=== PATIENT | male | born 1970 | race Hispanic/Latino ===

== ENCOUNTER → 2020-03-12 10:04 | Outpatient (ROUT) | payer OTHER, SELFPAY ==
[2020-03-12 10:28] LABS: COVID19 -Nasal RAPID Negative (Negative)
== END ==
PROVIDERS: Visit Provider Family Medicine
DX: Z20.822 Contact with and (suspected) exposure to COVID-19 (principal)
CPT/HCPCS: 87635

== ENCOUNTER → 2022-11-17 18:33 | Outpatient (CLI) | payer OTHER, SELFPAY ==
--- NOTE | 2022-11-17 18:38 | DI.MRI.S_ITS ---
PROCEDURE: MR KNEE RT WO CON INDICATIONS: Pain in right knee TECHNIQUE: Noncontrast sagittal PD fast spin echo and T2 fast spin echo with fat saturation, sagittal 3-D FLASH with fat saturation; coronal T1 spin echo and PD fast spin echo with fat saturation, and axial PD fast spin echo with fat saturation through the knee. COMPARISON: None. FINDINGS: Image quality: Excellent. Anterior Cruciate Ligament: Intact. Posterior Cruciate Ligament: Intact. Medial Collateral Ligament: Mild thickening of the proximal medial collateral ligament is most likely secondary to a remote prior low-grade sprain. Lateral Collateral Ligament: Intact. Medial Meniscus: Horizontal oblique tearing of the posterior horn and likely the body of the medial meniscus extending to the inner third of the tibial articular surface. Lateral Meniscus: Shallow radial tearing at the junction of the anterior horn and body of the lateral meniscus with a small centrally displaced meniscal flap. Medial and Lateral Tendons: The semimembranosus tendon insertions and meniscocapsular junction appear intact. Visualized portions of the pes anserinus tendons appear normal. No abnormal bursal fluid. The long and short heads of the biceps femoris tendon appear intact. The popliteus tendon appears intact. No signs of posterolateral corner injury. Iliotibial band appears normal. Anterior Structures: The quadriceps and patellar tendons appear intact. No patellar subluxation. No femoral trochlear dysplasia or ventral trochlear prominence. No edema in the infrapatellar fat pad. Bones: Mild focal osseous edema at the posterior aspect of the medial femoral condyle may be secondary to adjacent cartilage loss versus traction from the gastrocnemius tendon insertion versus a small contusion. Medial Femorotibial Cartilage: Mild partial-thickness surface cartilage irregularity. Lateral Femorotibial Cartilage: Full-thickness cartilage loss is seen at the posterior to far posterior portion of the lateral femoral condyle with subchondral osteophyte formation and mild subchondral cystic changes. Patellofemoral Cartilage: Mild partial-thickness cartilage thinning at the lateral femoral trochlea. Cartilage fissuring is seen at the medial femoral trochlea with subchondral cystic changes. Soft Tissues: Small joint effusion is present. Trace medial popliteal cyst. The musculature surrounding the knee is normal in bulk. IMPRESSION: 1. Horizontal oblique tearing of the posterior horn and body of the medial meniscus extending to the inner third of the tibial articular surface. 2. Shallow radial tearing at the junction of the anterior horn and body of the lateral meniscus with a small centrally displaced meniscal flap. 3. Remote prior low-grade sprain of the proximal medial collateral ligament. 4. Full-thickness cartilage loss at the posterior to far posterior portion of the lateral femoral condyle with subchondral osteophyte formation and subchondral cystic changes. 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 5. Small joint effusion. Approved by: Barrington Salazar M.D. on 11/18/2022 at 13:03
== END ==
PROVIDERS: Referring Provider Family Medicine; Visit Provider Family Medicine
DX: S83.241A Other tear of medial meniscus, current injury, right knee, initial encounter (principal); S83.281A Other tear of lateral meniscus, current injury, right knee, initial encounter; S83.411A Sprain of medial collateral ligament of right knee, initial encounter; M25.561 Pain in right knee; M25.461 Effusion, right knee
CPT/HCPCS: 73721

== ENCOUNTER → 2023-03-03 08:44 | Outpatient (CLI) | payer OTHER, SELFPAY ==
--- NOTE | 2023-03-03 08:48 | DI.RAD.S_ITS ---
PROCEDURE: XR ANKLE RT MIN 3V INDICATIONS: ROLLED ANKLE TECHNIQUE: 3 views of the ankle were acquired. COMPARISON: None. FINDINGS: Bones: Avulsion fracture of the lateral malleolus. Small lucent lesion along the medial talus. Soft tissues: Large tibiotalar joint effusion. Achilles tendon appears normal. IMPRESSION: Avulsion fracture of the lateral malleolus. Small lucent lesion along the medial talus, which could indicate osteochondral defect or be a sequela of trauma. Findings discussed with Dr. Ann at time of exam. Dictated by: Bill Venegas M.D. on 03/03/2023 at 10:43 Approved by: Bill Venegas M.D. on 03/03/2023 at 10:45
== END ==
PROVIDERS: PCP Family Medicine; Referring Provider Family Medicine; Visit Provider Family Medicine
DX: S82.61XA Displaced fracture of lateral malleolus of right fibula, initial encounter for closed fracture (principal); S93.401S Sprain of unspecified ligament of right ankle, sequela; M89.9 Disorder of bone, unspecified; X58.XXXA Exposure to other specified factors, initial encounter
CPT/HCPCS: 73610

== ENCOUNTER → 2023-03-10 16:36 | Outpatient (CLI) | payer OTHER, SELFPAY ==
--- NOTE | 2023-03-10 | DI.MRI.S_ITS ---
PROCEDURE: MR ANKLE RT WO CON INDICATIONS: CLOSED AVULSION FX OF LATERAL MALLEOLUS TECHNIQUE: Noncontrast sagittal T1 spin echo and T2 fast spin echo with fat saturation, axial proton density fast spin echo and T2 fast spin echo with fat saturation, coronal T1 spin echo and T2 fast spin echo with fat saturation through the ankle/hindfoot. COMPARISON: None. FINDINGS: Image quality: Excellent. Bones and joints: There is marrow edema involving mid to distal talus with osteochondral injury involving medial weight-bearing portion of talar dome measures 1 x 0.8 x 0.7 cm in size. No other area of abnormal marrow signal. No fracture or dislocation. Small tibiotalar joint effusion is seen, no gross loose bodies. Well-defined plantar and dorsal calcaneal enthesophytes are noted. Medial structures: The posterior tibialis, flexor digitorum longus, and flexor hallucis longus tendons are intact. Moderate amount of fluid distending flexor tendon sheath is seen. The posterior tibial neurovascular bundle appears normal within the tarsal tunnel, without extrinsic mass effect. Thickened deltoid ligament with intrasubstance T2 hyperintense signal is seen. The spring ligament complex is also thickened. Lateral structures: The anterior talofibular is not visualized suggestive of ruptured ATFL. The calcaneofibular, and posterior talofibular ligaments appear markedly thickened. More superiorly, the anterior and posterior tibiofibular ligaments also appears thickened with intrasubstance T2 hyperintense signal. The tibiofibular syndesmosis is normal in width at 2 mm or less. The peroneus tendons are thickened with moderate amount of fluid distending tendon sheath at the level of lateral malleolus extending to the level of calcaneocuboid joint. Significant lateral ankle soft tissue swelling is seen. Edema within sinus tarsi is seen. Visualized sinus tarsi components are grossly intact. Anterior structures: The tibialis anterior, extensor hallucis longus, and extensor digitorum longus tendons appear intact. The dorsal talonavicular ligament appears intact. Posterior and plantar structures: Achilles tendon is intact. Thickened medial band of plantar fascia at its calcaneal insertion is seen. No abductor digiti quinti muscle atrophy to suggest Ayon neuropathy. IMPRESSION: 1. 1 x 0.8 x 0.7 cm osteochondral injury involving medial weight-bearing portion of talar dome with surrounding edema. No fracture or dislocation. Small joint effusion, no gross loose bodies. Significant lateral ankle ligament soft tissue swelling and edema. 2. Suggestion of ruptured ATFL. Sprain/low-grade partial-thickness tear involving posterior talofibular ligament and calcaneofibular ligament as well as anterior and posterior tibial fibular ligaments. 3. Low to moderate grade deltoid ligament sprain. Low-grade spring ligament sprain. 4. Low to moderate grade tenosynovitis involving flexor tendons and peroneus tendons as above. No full-thickness ankle tendon rupture. 5. Well-defined plantar and dorsal calcaneal enthesophytes with thickened medial band of plantar fascia suggestive of low to moderate grade plantar fasciitis. Dictated by: Ravi Renner M.D. on 03/11/2023 at 9:23 Approved by: Ravi Renner M.D. on 03/11/2023 at 9:40
== END ==
LOC: MRI 16:36
PROVIDERS: PCP Family Medicine; Referring Provider Family Medicine; Visit Provider Family Medicine
DX: S82.61XA Displaced fracture of lateral malleolus of right fibula, initial encounter for closed fracture (principal); S93.411A Sprain of calcaneofibular ligament of right ankle, initial encounter; S93.491A Sprain of other ligament of right ankle, initial encounter; S93.421A Sprain of deltoid ligament of right ankle, initial encounter; M65.871 Other synovitis and tenosynovitis, right ankle and foot; M25.471 Effusion, right ankle; M79.89 Other specified soft tissue disorders; M77.31 Calcaneal spur, right foot
CPT/HCPCS: 73721

== ENCOUNTER 2023-03-31 06:34 | Day surgery (SDC) | payer OTHER, SELFPAY ==
[2023-03-26 10:07] VITALS: BMI 27.8
[2023-03-31 07:10] VITALS: BP 138/91; PULSE 67; RESP 16; TEMP 36.6; O2SAT 98; BMI 27.8
[2023-03-31] MEDS: LACTATED RINGERS 1,000 ML 100 ML IV ×2 (07:37→09:57)
--- NOTE | 2023-03-31 07:39 | PM.PREOP ---
Pre-operative Note Interval Note History & Physical reviewed/Exam performed by Physician: Yes Changes to H&P: No
--- NOTE | 2023-03-31 08:26 | SUR.PREOP ---
Block start time [0755] . time out performed with Dr Ram and this RN - Jonh. Monitoring initiated and maintained throughout procedure. Oxygen and medications given per anesthesiologist. Patient remained stable throughout procedure, no adverse reactions noted. Block end time [0815 ].
[2023-03-31] MEDS: CEFAZOLIN 2 GM/100 ML PREMIX 100 ML IV (08:43)
--- NOTE | 2023-03-31 08:50 | SUR.OPER ---
Supine on padded OR bed, head on pillow, arms secured on padded arm boards at <90 degrees abduction, legs uncrossed, safety belt at thigh, tape over blanket over lower LEFT LEG.
[2023-03-31] MEDS: BUPIVACAINE 0.25% (PF) 30 ML, EPINEPHrine 0.15 MG INJ (09:25)
[2023-03-31 10:56] VITALS: BP 139/97; PULSE 88; RESP 24; TEMP 36.3; O2SAT 98
[2023-03-31 11:00] VITALS: BP 138/94; PULSE 83; RESP 14; TEMP 36.3; O2SAT 98
[2023-03-31 11:05] VITALS: BP 133/90; PULSE 86; RESP 12; TEMP 36.3; O2SAT 98
[2023-03-31 11:09] VITALS: BP 134/89; PULSE 86; RESP 15; TEMP 36.2; O2SAT 99
[2023-03-31] MEDS: OXYCODONE IR 5 MG TABLET PO (11:19)
[2023-03-31 11:20] VITALS: BP 138/79; PULSE 70; RESP 16; TEMP 36.6; O2SAT 99
--- NOTE | 2023-03-31 15:18 | P.OP_ITS ---
Operative Date/Time/Diagnoses Date of procedure: 03/31/23 Time of procedure: 08:47 Pre-op diagnosis: Sprain anterior talofibular ligament right ankle s93.491a Osteochondral lesion right talus M89.9 Peroneal tendinosis right M67.88 Post-op diagnosis: same Procedure & Clinicians Procedure: 1. Unlisted procedure for leg or ankle CPT code 05851 open arthrotomy with treatment of talus osteochondral lesion with allograft cartilage compared to CT code 80902 right ankle talus 2. Modified Brostrom reconstruction lateral ankle ligaments CPT 06266 separate incision modifier 59 3. Debridement peroneal tendon peroneus brevis and longus right ankle CPT code 81143 Same procedure as scheduled: Yes Indications: Patient is a 52-year-old male with a right ankle sprain and osteochondral lesion status post a an industrial injury 03/03/2023 when he tripped at work rolled his ankle. MRI demonstrated acute ankle sprain with rupture of ATFL and acute medial talar dome osteochondral lesion measuring 10 x 8 x 7 mm with the medial portion of the weight-bearing dome with surrounding edema as well as pain and synovitis surrounding the peroneal tendons. Patient was indicated for surgery to address his cartilage lesion and address his ATFL rupture with a lateral ligament reconstruction to reduce the risk of continued instability and more cartilage damage. He was also indicated for exploration debridement of his peroneal tendons. The risks and benefits of the procedure have been discussed with the patient and given the opportunity to ask questions. The risks of surgery include but are not limited to infection, malunion, nonunion, persistence of pain, damage to nerves and blood vessels, posttraumatic arthritis, DVT, PE, cardiopulmonary complications and . The patient expressed a thorough understanding of the risks and benefits of surgery and has elected to proceed. Consent was signed . Surgeon: Hamida Graves Click Yes if Unassisted: Yes Anesthesia Type: General, Peripheral nerve block and Local Operative Notes Findings: Increased anterior drawer Medial talar dome osteochondral lesion 10 x 8 x 6 debrided of unstable cartilage to a stable border drilled and repaired using allograft cartilage mixed with platelet rich plasma and sealed with fibrin Tisseel. Lateral ligaments reconstructed with 2 x fiber tacks from Arthrex Peroneal tendons were debrided of tendinosis and low-lying muscle belly there is a small backside tear of the peroneus brevis tendon that was debrided sharply Closure Type: primary Specimen(s): none sent Estimated Blood Loss (mL): 20 Blood products transfused: none Tourniquet time (min): 82 Procedure in detail: Patient was seen in the preoperative area the site of surgery marked informed consent confirmed. A regional block was placed by the anesthesia team for postoperative pain control. Patient was brought back to the operating room positioned supine on operative table. General anesthetic was administered. A well-padded thigh tourniquet was applied. The right lower extremity was prepped and draped in the standard sterile fashion a formal time-out procedure was performed confirming the patient's side and site of surgery administration of appropriate preoperative antibiotic and presence of informed consent. All were in agreement. Attention turned to the right ankle the Esmarch was used for exsanguination and the tourniquet raised on the thigh to 250 mmHg. 10 cc of saline was used in insufflate the tibiotalar joint then using the standard domo and spread technique the medial anterior portal was made and the arthroscopic camera was inserted. The ankle was brought into plantar flexion and the medial talar dome osteochondral lesion was visualized. There was no lateral osteochondral lesion visualized. Due to the size and location of the lesion decision was made for an open arthrotomy for the cartilage allograft therefore the camera was removed the medial portal site was extended into a medial arthrotomy dissection was taken down to the tibiotalar joint. The ankle K-wire distractor was brought in to hold the ankle in plantar flexion allowing exposure of the weight-bearing portion of the talar dome and exposure of the osteochondral lesion. The ring curette and regular curette were used to debride the unstable cartilage back to stable borders giving a size of approximately 1 cm x 6 x 8 mm. This was then drilled. PRP was drawn and spun off the set up. This was then mixed with the Arthrex cartilage allograft and this was placed into the osteochondral lesion and care was taken to pad this down so that it was not prominent. This was then sealed with Tisseel fibrin glue and allowed to set for 5 minutes with the ankle held distracted. Once this was complete the ankle was taken through range of motion with a good normal contour of the talus. Next attention was turned to the lateral ankle ligament reconstruction. The leg was internally rotated and a new separate incision was made along the posterior border of the fibula crossing the distal fibula over the location of the ATFL in a curvilinear fashion. So taken down through the skin subcutaneous tissues posteriorly the peroneal tendon sheath was opened. There was noted to be a small traumatic rent in this proximally this was extended distally opening the peroneal sheath. There was moderate tendinosis of both the peroneus longus and brevis tendon and a low-lying peroneus brevis muscle belly as well as a small distal tear at the level of the lateral malleolus. The low-lying muscle belly and tendinosis was debrided. Additionally the small less than 1/3 peroneus brevis tear was addressed with a sharp debridement. Next the periosteum was reflected off the distal fibula and the insertion site for the ATFL was prepared on the distal fibula with the rongeur. The extensor retinaculum and lateral ligamentous layers were . The drill for the fiber tacks was used at the distal fibula and the fiber tacks were inserted. The needles were then brought through the ATFL and lateral ankle ligaments in a horizontal mattress fashion. The CFL was intact visualized under the peroneal tendons. Then the ankle was brought into dorsiflexion and eversion and the Brostrom ligamentous repair was tied. Remnants from the FiberWire were then brought back through the periosteal flap on the fibula and tied over the top. Separate Vicryl suture was used for the Mahajan modification extensor retinaculum to the fibular periosteum. Anterior drawer was stable after repair. Wounds were irrigated. Tourniquet released. Hemostasis was achieved and the wound was closed in a layered fashion with 2-0 Vicryl 4-0 Monocryl and 3-0 nylon suture. Additional 20 cc of local anesthetic was infiltrated for postoperative pain control. A well-padded posterior and U splint was applied in neutral position. The patient was awoken from anesthesia and taken to the recovery room in good condition. There were no immediate complications from this procedure. All counts were correct. Complications: none Post-operative Condition: stable Disposition: PACU Plan for aftercare: Minimum 4 weeks of nonweightbearing. Once incisions are healed the patient will follow up in 2 weeks for conversion from splint to a boot for early range of mot ion. Aspirin for DVT prophylaxis.
== END 2023-03-31 11:20 | disposition home or self-care (01) ==
PROVIDERS: PCP Family Medicine; Referring Provider Orthopaedic Surgery Foot and Ankle Surgery; Visit Provider Orthopaedic Surgery Foot and Ankle Surgery
PROC: (CPT 27698; principal; 2023-03-31 07:45)
DX: S93.491A Sprain of other ligament of right ankle, initial encounter (principal); M89.9 Disorder of bone, unspecified; M67.88 Other specified disorders of synovium and tendon, other site; W22.8XXA Striking against or struck by other objects, initial encounter; X50.0XXA Overexertion from strenuous movement or load, initial encounter
CPT/HCPCS: 27698; 27899; 64450; J0171; J0690; J2250; J2704; J3010

== ENCOUNTER → 2024-06-20 14:34 | Outpatient (ROUT) | payer OTHER, SELFPAY ==
[2024-06-20 15:15] LABS: Free T3, Triiodothyronine Free 4.29 pg/mL (2.77-5.27); Free T4, Direct Thyroxine 0.86 ng/dL (0.78-2.19)
[2024-06-20 15:29] LABS: Thyroid Stimulating Hormone 7.65 uIU/mL (0.47-4.68)
== END ==
PROVIDERS: PCP Family Medicine; Visit Provider Family Medicine
DX: E03.9 Hypothyroidism, unspecified (principal)
CPT/HCPCS: 84439; 84443; 84481

== ENCOUNTER → 2024-11-22 13:48 | Outpatient (ROUT) | payer OTHER, SELFPAY ==
[2024-11-22 14:30] LABS: Free T3, Triiodothyronine Free 4.59 pg/mL (2.77-5.27); Free T4, Direct Thyroxine 1.20 ng/dL (0.78-2.19)
[2024-11-22 14:43] LABS: Thyroid Stimulating Hormone 3.96 uIU/mL (0.47-4.68)
== END ==
LOC: LAB 13:49
PROVIDERS: PCP Family Medicine; Visit Provider Family Medicine
DX: E03.9 Hypothyroidism, unspecified (principal)
CPT/HCPCS: 84439; 84443; 84481